=== PATIENT | male | born 1990 | race Caucasian/White ===

== ENCOUNTER 2020-08-05 11:26 | Emergency (ER) | payer BC, SELFPAY ==
[2020-08-05 11:37] VITALS: BP 159/88; PULSE 64; RESP 20; TEMP 36.7; O2SAT 99
--- NOTE | 2020-08-05 11:53 | ED.EYEPROB ---
HPI - Eye Problem General Chief complaint: Eye Problems Stated complaint: 30YO male w/ pain in R eye after his sawzaw kicked back and has a few dust particles in her eye. Here c/o photophobia, denies direct trauma to eye. Related Data Home Medications Medication Instructions Recorded Confirmed No Home Medications 08/05/20 08/05/20 Allergies Allergy/AdvReac Type Severity Reaction Status Date / Time No Known Allergies Allergy Mild Verified 08/05/20 11:40 Review of Systems Review of Systems: All systems reviewed & are unremarkable except as noted in HPI and below Constitutional: Constitutional: Reports as per HPI and Reports no additional constitutional complaints Eyes: Eyes: Reports photophobia ENT: Reports system reviewed and no additional complaints, except as documented Cardiovascular: Cardiovascular: Reports as per HPI and Reports no additional cardiovascular complaints Respiratory: Respiratory: Reports as per HPI and Reports no additional respiratory complaints Gastrointestinal: Gastrointestinal: Reports as per HPI and Reports no additional gastrointestinal complaints Musculoskeletal: Musculoskeletal: Reports no additional musculoskeletal complaints Integumentary/Breasts: Skin/Breast: Reports system reviewed and no additional complaints, except as docu Neurologic: Reports system reviewed and no additional complaints, except as documented Psychiatric: Psychiatric: Reports no additional psychiatric complaints Endocrine: Endocrine: Reports no additional endocrine complaints Hematologic/Lymphatic: Hematologic/Lymphatic: Reports no additional hematologic/lymphatic complaints Allergic/Immunologic: Allergic/Immunologic: Reports no additional allergic/immunologic complaints Exam Const: General: no acute distress and alert Orientation/consciousness: patient oriented x3 Limitations: altered mental status HENMT: Head: normal to inspection Eyes: General: appearance normal, both eyes and all related structures Visual Ables: normal visual bales by confrontation Alignment and Position: alignment normal and position normal Conjunctivae: conjunctival abnormality (mild injection) right Sclera: sclerae normal Cornea: corneas normal and fluorescein used (No uptake) Pupils: Equal, round and reactive pupils present EOM: EOMs intact bilaterally Direct Ophthalmoscopy: normal light reflex, anterior chamber normal and photophobia Other: Gross visual exam revealed no FB. Fluorescein stain revealed no uptake when viewed w/ laughlin lamp. Neck: Neck: normal visual inspection Chest: Chest palpation & inspection: normal inspection of the chest Resp: Effort & Inspection: normal respiratory effort Cardio: Rate: regular rate Rhythm: regular rhythm Course Course Emergency Course: Gross visual exam revealed no FB. Fluorescein stain revealed no uptake when viewed w/ laughlin lamp. USed Saul lens w/ 1LNS for irrigation. Vital Signs Vital signs: Vital Signs Temperature 98.0 F 08/05/20 11:37 Pulse Rate 64 08/05/20 11:37 Respiratory Rate 20 08/05/20 11:37 Blood Pressure 159/88 H 08/05/20 11:37 Pulse Oximetry 99 08/05/20 11:37 Temperature 98.0 F 08/05/20 11:37 Pulse Rate 64 08/05/20 11:37 Respiratory Rate 20 08/05/20 11:37 Blood Pressure 159/88 H 08/05/20 11:37 Pulse Oximetry 99 08/05/20 11:37 MDM - Eye Problem Differential Diagnosis Differential diagnosis: Likely corneal abrasion and conjunctivitis; Unlikely acute iritis, periorbital cellulitis, subconjunctival hemorrhage and ruptured globe Critical Care Time Critical Care Time Critical Care Time: No Discharge Plan Discharge Clinical Impression: Acute conjunctivitis of right eye Qualifiers: Acute conjunctivitis type: unspecified Qualified Code(s): H10.31 - Unspecified acute conjunctivitis, right eye Patient Disposition: Home, Self-Care Condition: Stable Instructions: Antibiotic Form, How to Use Eye Drops (ED), Co
[2020-08-05] MEDS: DACRIOSE EYE IRRIGATION 118 ML BOTTLE (11:56)
[2020-08-05] MEDS: TETRACAINE HCL 0.5% OPHTH SOLN 4 ML BTL 1 DROP (11:56)
[2020-08-05] MEDS: FLUORESCEIN SOD 1 MG/STRIP (11:56)
--- NOTE | 2020-08-05 11:58 | PC.NURSE ---
Saul lense inserted into R eye per EDP VORB. Pt tolerating well.
[2020-08-05 13:02] VITALS: BP 128/70; PULSE 78; RESP 18; TEMP 36.7; O2SAT 99
== END 2020-08-05 13:04 | disposition home or self-care (01) ==
PROVIDERS: Emergency Provider Family Medicine; PCP Family Medicine
DX: H10.31 Unspecified acute conjunctivitis, right eye (principal)
CPT/HCPCS: 99283; A9270; J7030

== ENCOUNTER 2023-01-05 11:18 | Outpatient (CLI) | payer BC, SELFPAY ==
--- NOTE | ~2023-01-05 | XR_ITS ---
XR ankle LT min 3V DATE: 01/05/2023 11:39 INDICATION: Posterior ankle pain for 3 weeks TECHNIQUE: 4 views COMPARISON: None FINDINGS: Os subfibular artery, normal variant. No recent fracture or dislocation of the ankle or disruption of the ankle mortise is detected. No per iosteal reaction or bone destruction. Mild posterior calcaneal enthesopathy. IMPRESSION: Mild posterior calcaneal enthesopathy Reviewed, dictated and finalized at location B.
== END 2023-01-05 11:19 | disposition home or self-care (01) ==
LOC: CHSIMG 11:20
PROVIDERS: PCP Family Medicine; Visit Provider Family Medicine
DX: M25.572 Pain in left ankle and joints of left foot (principal); M77.32 Calcaneal spur, left foot
CPT/HCPCS: 73610

== ENCOUNTER 2025-07-28 10:02 | Outpatient (CLI) | payer OTHER, SELFPAY ==
--- NOTE | ~2025-07-28 | XR_ITS ---
EXAMINATION: XR wrist LT min 3V, 07/28/2025 10:25 CDT HISTORY: Lt. wrist pain, NKI COMPARISON: No comparisons available. Findings: Remote corticated fracture of the distal radius, no acute fracture identified No significant degenerative changes. Soft tissues unremarkable. Impression: No acute fracture or malalignment. Reviewed, dictated and finalized at location P. Impression: No acute fracture or malalignment.
--- NOTE | ~2025-07-28 | XR_ITS ---
XR lumbar spine 2-3V Indication: Dorsalgia, chronic low back pain Comparison: None Findings: The vertebral heights are intact. No fracture or subluxation. The disc heights are intact. Soft tissues unremarkable Impression: No acute abnormality. Reviewed, dictated and finalized at location P. Impression: No acute abnormality.
--- OUTSIDE RECORDS SUMMARY | 2025-07-28 10:39 | XMS_ITS | Clinical Summary ---
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 Gender Identity Not on file Sexual Orientation Not on file Last Filed Vital Signs Vital Sign Reading Time Taken Comments Blood Pressure 150/61 05/19/2020 11:10 AM CDT Pulse 68 05/19/2020 11:10 AM CDT Temperature 36.6 C (97.9 F) 05/19/2020 11:10 AM CDT Respiratory Rate 18 05/19/2020 11:10 AM CDT Oxygen Saturation 99% 05/19/2020 11:10 AM CDT Inhaled Oxygen Concentration - - Weight 99.8 kg (220 lb) 05/19/2020 11:10 AM CDT Height 175.3 cm (5' 9) 05/19/2020 11:10 AM CDT Body Mass Index 32.49 05/19/2020 11:10 AM CDT Plan of Treatment Health Maintenance Due Date Last Done Comments Annual Physical 1995 Hepatitis C 2010 DTaP, Tdap and Td Vaccines ( 1 - Tdap) 2011 Hepatitis B Vaccines (1 of 3 - 19+ 3-dose series) 2011 HPV Vaccines (1 - 3-dose SCD M series) 2019 COVID-19 Vaccine (2023-2 5 season) 2025 Influenza Adult (#1) 2025 Hepatitis A Vaccines Aged Out No long er eligible based on patient's age to complete this topic Meningococcal B Vaccine Aged Out No l onger eligible based on patient's age to complete this topic Meningococcal Vaccine Aged Out No ozzie debbie eligible based on patient's age to complete this topic Pneumococcal Vaccine: Pediat rics (0 to 5 Years) and At-Risk Patients (6 to 49 Years) Aged Out No longer eligible b ased on patient's age to complete this topic RSV Immunizations Under 20 Months Aged Out No longer eligible based on patient's age to complete this topic Insurance [facility]
--- OUTSIDE RECORDS SUMMARY | 2025-07-28 10:39 | XMS_ITS | Clinical Summary ---
Author Organization Address [address] [place] [address] Care Team Providers Care Edger Feeder Name Role Phone Unavailable Primary Care Provider Unavailabl e Immunizations Immunization Administration Dates Next Due Covid-19, Mrna, Lnp-s, Pf, 30 Mcg/0.3 Ml Dose (P fizer) 06/25/2021,06/04/2021 Social History Tobacco Use Types Packs/Day Years Used Date Smoking Tobacco: Never Assessed Sex and Gender Information Value Date Recorded Sex Assigned at Not on file Legal Sex Male 8:00 AM CDT Gender Identity Not on file Sexual Orientation Not on file Plan of Treatment Health Maintenance Due Date Last Done Comments Hepatitis C Virus (HCV) Screening 1992 Human Papillomavirus (HPV) Immunization (1 - 3-dose SCDM series) 2019 Influenza Immunization (#1) 2025 08/10/2019, 0 06/27/2017 SARS-COV-2 Immunization (3 - 2024- season) 2025 06/25/2021, 06/04/2021 Respiratory Syncytial Virus (RSV) Immunization (Adult) (1 - 1-dose 75+ series) 2067 Hepatitis B Immunization Completed 997, 01/24/1997, 12/02/1996 DTaP/Tdap/Td Immunization Discontinued 2018, 06/05/2003, 02/27/1996, Additional history exists TdaP Immunization Completed 10/27/2018 Meningococcal Immunization (ACWY) Aged Out No longer eligible based on patient's age to complete this topic Pneumococcal Immunization Combined Aged Out No longer eligible based on patient's age to complete this topic Rotavirus Immunization Aged Out No lo nger eligible based on patient's age to complete this topic
== END 2025-07-28 10:03 | disposition home or self-care (01) ==
PROVIDERS: PCP Family Medicine; Visit Provider Family Medicine
DX: M25.532 Pain in left wrist (principal); M54.9 Dorsalgia, unspecified
CPT/HCPCS: 72100; 73110